=== PATIENT | male | born 1970 | race African-American/Black ===

== ENCOUNTER 2020-09-10 04:25 | Emergency (ER) | payer BC, OTHER ==
[~2020-09-10] VITALS: Ht 172.7 cm; Wt 93.9 kg
[2020-09-10 04:26] VITALS: BP 166/123
[2020-09-10 04:38] LABS: BE(vivo) -21.2 mmol/L (-2 to +3); HCO3 4.6 mmol/L (22.0-26.0); PO2 214.2 mmHg (80.0-100.0); sO2 99.2 % (92.0-98.0)
[2020-09-10 04:41] LABS: PCO2 12.9 mmHg (35.0-45.0); pH 7.174 (7.360-7.450)
[2020-09-10 06:18] LABS: ABSOLUTE NEUTROPHILS 10.6 thou/uL (1.4-8.2); BASOPHILS 0.3 % (0.0-2.0); HEMOGLOBIN 14.9 gm/dL (14.0-18.0); LYMPHOCYTES 5.6 % (24.0-44.0); MCH 34.9 pg (26.0-34.0); MCHC 30.4 g/dL (28.0-37.0); MCV 114.7 fL (80.0-100.0); MONOCYTES 4.2 % (1.0-8.0); PLATELET COUNT 124 thou/uL (150-400); POLYS 89.9 % (36.0-66.0); RBC 4.27 mil/uL (4.50-6.00); RDW 19.7 % (10.5-14.5); WBC 11.8 thou/uL (4.0-11.0)
[2020-09-10 06:36] LABS: APTT 28.2 Seconds (24.5-32.8); INR 1.9; PROTIME 19.3 Seconds (9.3-11.4)
[2020-09-10 06:37] LABS: CALCIUM 9.8 mg/dL (8.5-10.1); CREATININE 2.7 mg/dL (0.7-1.3); POTASSIUM 4.3 mmol/L (3.5-5.1); TOTAL PROTEIN 10.3 g/dL (6.4-8.2); TROPONIN-I 0.5 ng/mL (<0.06)
[2020-09-10 06:38] LABS: URINE BILIRUBIN 3+ (Negative); URINE BLOOD 3+ (Negative); URINE CLARITY CLOUDY; URINE COLOR BROWN; URINE GLUCOSE-RANDOM* NEGATIVE (Negative); URINE KETONES TRACE (Negative); URINE LEUKOCYTES-REFLEX NEGATIVE (Negative); URINE PROTEIN (DIPSTICK) 3+ (Negative); URINE SPECIFIC GRAVITY >= 1.030 (1.005-1.035)
[2020-09-10 06:38] LABS: TOTAL BILIRUBIN 6.1 mg/dL (0.2-1.0)
[2020-09-10 06:39] LABS: MAGNESIUM 0.9 mg/dL (1.8-2.4)
[2020-09-10 06:41] LABS: URINE NITRITE-REFLEX POSITIVE (Negative)
[2020-09-10 06:42] LABS: ICTOTEST (BILI CONFIRMATORY) Positive (Negative)
[2020-09-10 06:50] LABS: AMORPHOUS URATES Many /LPF (None Seen); CASTS None Seen /LPF (None Seen); SQUAMOUS None Seen /LPF (0-3); URINE RBC 0-2 Rare /HPF (0-2); URINE WBC-REFLEX None Seen /HPF (0-5)
[2020-09-10 07:24] LABS: ANISOCYTOSIS 1+; MACROCYTES 2+; PLATELET ESTIMATE NORMAL
--- NOTE | 2020-09-10 09:05 | NUR ---
PT TUBED AT THIS TIME 20
[2020-09-10 09:45] LABS: BE(vivo) -22.7 mmol/L (-2 to +3); HCO3 6.8 mmol/L (22.0-26.0); PCO2 26.4 mmHg (35.0-45.0); PO2 494.8 mmHg (80.0-100.0); sO2 99.8 % (92.0-98.0)
[2020-09-10 09:46] LABS: pH 7.029 (7.360-7.450)
[2020-09-10 11:00] VITALS: BP 70/35
--- NOTE | 2020-09-10 12:47 | NUR ---
FAMILY WITH PT.
--- NOTE | 2020-09-10 12:51 | NUR ---
CONSULTED TO PLACE A CENTRAL LINE. CONSENT BY MD PER MEDICAL NECESSITY. THE RIGHT JUGULAR WAS WIDLEY PATENT. A #6F TRIPLE LUMEN POWER INJECTABLE CENTRAL LINE WAS PLACED PER HOSPITAL POLICY AFTER A BEDSIDE TIMEOUT WAS COMPLETED. THE 25CM LINE ADVANCED TO 7CM EXTERNAL. XRAY CONFIRMED LINE IN APPROPRIATE POSITION. LINE SECURED AND RELEASED FOR USE
--- NOTE | 2020-09-12 07:27 | EKG ---
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1970 Requested By: Paul Echols Order Number: [id number] MD: Maged Ortiz Measurements Intervals [place] Rate: 145 P: MS: QRS: -70 QRSD: 102 T: QT: 323 QTc: 502 Interpretive Statements Baseline artifact limits rhythm determination Probable sinus tachycardia Paired ventricular premature complexes LAD, consider left anterior fascicular block Borderline low voltage, extremity leads Nonspecific ST and T wave abnormality Borderline prolonged QT interval No previous ECG available for comparison Electronically Signed On 09-12-2020 7:26:49 [employer] by Maged Ortiz [email or web address] <ELECTRONICALLY SIGNED> By: Maged Ortiz MD, [facility] 09/12/20 0726 2 2 Maged Ortiz MD, [facility] /EPI
--- NOTE | 2020-09-12 07:27 | EKG ---
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1970 Requested By: Inder Leonard Order Number: [id number] MD: Maged Ortiz Measurements Intervals [place] Rate: 141 P: 0 ND: 102 QRS: -70 QRSD: 99 T: 157 QT: 287 QTc: 440 Interpretive Statements Artifact limits interpretation Sinus tachycardia Multiform ventricular premature complexes Left anterior fascicular block Nonspecific ST and T wave abnormality No previous ECG available for comparison Electronically Signed On 09-12-2020 7:27:27 [employer] by Maged Ortiz [email or web address] <ELECTRONICALLY SIGNED> By: Maged Ortiz MD, [facility] 09/12/20 0727 [id number] Maged Ortiz MD, [facility]ACC /EPI
--- NOTE | 2020-09-13 09:46 | HC ---
[facility] [place] [address] [address] CONSULTATION Name: BONIFACIO BARKER Room #: DEP [place]#: [id number] Admission: 09/10/20 Attend Phys: Discharge: 09/10/20 Date of : 66 Report #: [id number] THIS REPORT FOR: cc: Herminia Kent MD, Karla L. MD Mancuso, Gerald M. MD [facility] ~ HISTORY OF PRESENT ILLNESS: The patient is a 50-year-old male who we have limited history on. He was brought in by EMS ground. Having progressive dyspnea and shortness of breath. Subsequently, found to have a significant underlying urinary tract infection and a history of a dilated cardiomyopathy. Apparently, he has been marginally compliant. He has baseline abnormal EKG changes. He was seen here once in 2017 and supposed to be following with Dr. Paz at [facility]. He was hospitalized here in 2017 for pancreatitis with a history of an idiopathic dilated cardiomyopathy, hypertension, hypercholesterolemia, obesity and glucose intolerance. There are no other records in this hospital at this time. He is found to be profoundly acidotic and currently being intubated. His lactate level is 6.8. His COVID is negative. His UA does suggest infection. The gas initially was 7.17, but worsened. PAST MEDICAL HISTORY: Positive for the dilated cardiomyopathy, apparent recurrent heart failure issues, pancreatitis, hypertension, obesity, glucose intolerance, DJD. FAMILY AND SOCIAL HISTORY: Essentially unobtainable currently, but reviewed the one limited note we have from myself in 2017. 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 The family history apparently according to the old records, he had a twin brother who had an infarct and also a sister, both prematurely. PHYSICAL EXAMINATION: GENERAL: He is currently being intubated. He is tachycardic. VITAL SIGNS: He is maintaining his blood pressure, 140s to 160s over 90 to 100. Currently intubated. GENERAL: He is not responsive, sedated. LUNGS: Clear anteriorly. Markedly diminished in the bases. CARDIOVASCULAR: Heart tones are distant and irregularly irregular, tachycardic. ABDOMEN: Large, distended. EXTREMITIES: Reveal 2-3+ bilateral lower extremity edema to the mid khalil. NEUROLOGIC: Appears to be moving all extremities, but currently sedated. ASSESSMENT: 1. Acute respiratory failure, probable multifactorial with subsequent acidosis, now intubated. 2. History of dilated idiopathic cardiomyopathy. 3. Atrial fibrillation with rapid ventricular response/evidence for [facility] [address] [place] [address] CONSULTATION Name: BONIFACIO BARKER Room #: DEP [place]#: [id number] Admission: 09/10/20 Attend Phys: Discharge: 09/10/20 Date of : 66 Report #: [id number] nonsustained ventricular tachycardia. 4. Hypertension. 5. Morbid obesity. RECOMMENDATIONS AND PLAN: We will attempt with intubation to help correct predominantly a respiratory acidosis. We will obtain an echo Doppler. We will continue IV amiodarone. Repeat EKGs, troponin. Laboratory work. We will look for any old records, possibly from [facility] and Dr. Paz, although his cardiovascular history seems to be fairly straightforward with an idiopathic dilated cardiomyopathy and longstanding hypertension and significant alcohol and tobacco use. We will follow with you. Thank you for asking me to assist in the care of this patient. <ELECTRONICALLY SIGNED> By: Paul Echols MD, FACC 09/13/20 0946 [id number] Paul Echols MD, FACC /nt
== END 2020-09-10 11:18 ==
LOC: ER 04:25 → EROBS 07:53 → EDBD 07:53 → ER 07:53
PROVIDERS: Emergency Medicine
DX: E87.2 Acidosis (principal); Z20.828 Contact with and (suspected) exposure to other viral communicable diseases